=== PATIENT | male | born 1995 | race Caucasian/White ===

== ENCOUNTER 2022-05-14 21:03 | Emergency (ER) | payer SELFPAY ==
[~2022-05-14] VITALS: Ht 170.2 cm; Wt 86.2 kg
[2022-05-14 21:17] VITALS: BP_SYST 132
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
--- NOTE | 2022-05-14 21:18 | NUR ---
Dr. Wing assessing pt.
[2022-05-14 21:25] VITALS: BP_SYST 128
--- NOTE | 2022-05-14 21:25 | NUR ---
Patient given written and verbal discharge instructions and verbalizes understanding. ER MD discussed with patient the results and treatment provided. ID arm band removed. No Rx given. Patient educated on pain management and to follow up with PMD. Pain Scale 0/10. Opportunity for questions provided and answered. Medication side effect fact sheet provided. Pt leaves in the care of [facility] in stable condition and in cuffs. Pt ambulatory with steady gait.
== END 2022-05-14 21:25 ==
LOC: SED 21:03
DX: F10.929 Alcohol use, unspecified with intoxication, unspecified; Z79.899 Other long term (current) drug therapy; Y90.6 Blood alcohol level of 120-199 mg/100 ml
CPT/HCPCS: 99283